=== PATIENT | female | born 1995 | race Caucasian/White ===

== ENCOUNTER 2017-02-16 14:50 | Emergency (ER) | payer SELFPAY | END 2017-02-16 15:21 | disposition left against medical advice (07) | LOC: ED 15:15 | DX: O26.893 Other specified pregnancy related conditions, third trimester (principal); Z3A.32 32 weeks gestation of pregnancy; R10.9 Unspecified abdominal pain; Z53.21 Procedure and treatment not carried out due to patient leaving prior to being seen by health care provider ==

== ENCOUNTER 2017-02-16 15:07 | Outpatient (CLI) | payer SELFPAY ==
[2017-02-16 15:45] VITALS: BP 121/76
[2017-02-16 17:08] LABS: DAU SCREEN DISCLAIMER
== END 2017-02-16 17:26 | disposition home or self-care (01) ==
LOC: LDOP 15:07
PROVIDERS: ATTEND Obstetrics & Gynecology
DX: O26.893 Other specified pregnancy related conditions, third trimester (principal); R10.9 Unspecified abdominal pain; Z3A.31 31 weeks gestation of pregnancy
CPT/HCPCS: 59025; 80307; 81003; 87086; 99201; G0463

== ENCOUNTER 2017-03-14 12:24 | Emergency (ER) | payer SELFPAY ==
[~2017-03-14] VITALS: Ht 162.6 cm; Wt 73.3 kg
[2017-03-14 12:29] VITALS: BP 112/72
[2017-03-14] MEDS ORDERED: ACETAMINOPHEN 325 MG TABLET PO ONE (13:30)
[2017-03-14] MEDS ORDERED: ACETAMINOPHEN 325 MG TABLET ONE (13:32)
== END 2017-03-14 13:50 | disposition home or self-care (01) ==
LOC: ED 13:30
DX: K02.9 Dental caries, unspecified (principal)
CPT/HCPCS: 99283